=== PATIENT | male | born 1965 | race Caucasian/White ===

== ENCOUNTER 2016-04-21 15:46 | Emergency (ER) | payer OTHER, BC ==
--- NOTE | 2016-04-21 17:50 | ERNOTE ---
Upper Extremity HPI - Narrative Date of Service: 04/21/16 - General Extremities Pain Location: arm: left, forearm: left Time Seen by Provider: 04/21/16 16:13 Source: patient Exam Limitations: no limitations - Immun/Allergies/Home Medications Immunizations: IMMUNIZATION HX Immunizations Up to Date Yes History of Influenza Vaccine Yes Allergies/Adverse Reactions: Allergies Allergy/AdvReac Type Severity Reaction Status Date / Time No Known Allergies Allergy Unverified 04/21/16 15:59 Home Medications: HOME MEDICATIONS Chlorthalidone 50 mg PO DAILY 04/21/16 [Last Taken Unknown] Citalopram Hydrobromide [Citalopram HBr] 40 mg PO DAILY 04/21/16 [Last Taken Unknown] Lisinopril [Zestril] 10 mg PO DAILY 04/21/16 [Last Taken Unknown] Metoprolol Succinate [Toprol Xl] 50 mg PO DAILY 04/21/16 [Last Taken Unknown] Potassium Chloride [Klor-Con 10] 10 meq PO DAILY 04/21/16 [Last Taken Unknown] - History of Present Illness Narrative: Pt. comes in with L distal humerus and proximal ulna pain that started at 1500 this afternoon. Pt. denies any prehospital treatment or alleviating factors but states that extension of the elbow, abduction of the shoulder and rotation of the arm exacerbate the pain. Review of Systems - Review of Systems Constitutional: Present: no symptoms reported. Absent: recent illness, fever, chills, weakness, fatigue, malaise EYE: Present: no symptoms reported ENT: Present: no symptoms reported Respiratory: Present: no symptoms reported. Absent: shortness of breath, cough , wheezing Cardiology: Present: no symptoms reported. Absent: chest pain, palpitations Gastrointestinal/Abdominal: Present: no symptoms reported. Absent: nausea, vomiting, diarrhea, abdominal pain Musculoskeletal: Present: muscle pain - distal bicep attachment and proximal flexor digitalis attachment. Absent: back pain Neurological: Present: no symptoms reported. Absent: headache, dizziness/light- headedness, numbness, tingling, tremors All Other Systems: All systems neg except as marked - Patient's Past Medical History Patient History - Medical: No pertinent hx Patient History - Cardiac/Respiratory: Hypertension Patient History - Cancer: No Hx of Cancer Patient History - Surgical Procedures: Other - Social History Smoking Status: Never smoker Have you smoked in the past 12 months: No - Immunizations Immunizations Up to Date: Yes History of Influenza Vaccine: Yes Physical Exam - Physical Exam General Appearance: Present: wd/wn, alert, no apparent distress Eye Exam: Normal inspection: bilateral, PERRL: bilateral, EOMI: bilateral Ears, Nose, Throat: Present: normal ENT inspection, hearing grossly normal, normal pharynx Neck: Present: normal inspection, nontender. Absent: lymphadenopathy (R), lymphadenopathy (L) Respiratory: Present: no respiratory distress, normal breath sounds, no accessory muscle use, chest nontender, lungs clear Cardiovascular/Chest: Present: regular rate, rhythm, no murmur, normal peripheral pulses Back Exam: Present: normal inspection, normal range of motion, no vertebral tenderness Extremity Exam: Present: other - distal bicep attachment and proximal flexor digitalis attachment tenderness and pain with extension resistance Neurological Exam: Present: alert, oriented, normal mood/affect, no motor/ sensory deficits Skin Exam: Present: normal color, warm/dry. Absent: pallor, skin rash ED Progress - Vital Signs Patient's Vital Signs:: I have reviewed the patient's vital signs. Vital Signs: Vital Signs 04/21/16 04/21/16 15:56 17:30 Temperature 36.4 C L Pulse Rate 59 L 80 Respiratory 16 12 Rate Blood Pressure 161/93 136/88 O2 Sat by Pulse 95 99 Oximetry - X-Ray X-Ray #1 X-Ray: elbow Interpretation: Reviewed by me X-ray Comments: no acute - Progress/Reassessment Chief Complaint: Upper Extremity Injury/Problem Departure Clinical Impression: ECRL (extensor carpi radialis longus) tenosynovitis Biceps muscle strain Qualifiers: Encounter type: initial encounter Laterality: left Qualified Code(s): S46.112A - Strain of muscle, fascia and tendon of long head of biceps, left arm, initial encounter - Departure Disposition: Home self-care Condition: Good Instructions: Tendinitis and Tenosynovitis-SportsMed Additional Instructions: Please folow up with occupational health to determine next steps you may take up to 800mg Ibuprofen as needed every 8 hours for pain Referrals: Del Cain MD [Primary Care Provider] -
[2016-04-21 18:14] VITALS: BP 141/88
== END 2016-04-21 18:14 | disposition home or self-care (01) ==
LOC: ER 15:46
DX: M65.88 Other synovitis and tenosynovitis, other site (principal); S46.112A Strain of muscle, fascia and tendon of long head of biceps, left arm, initial encounter; X58.XXXA Exposure to other specified factors, initial encounter

== ENCOUNTER 2017-06-07 06:54 | Day surgery (SDC) | payer BC, OTHER ==
[~2017-06-07 06:54] MED LIST: RINGER'S SOLUTION,LACTATED 1,000 ML IV PRN
[2017-06-07] MEDS ORDERED: RINGER'S SOLUTION,LACTATED 1,000 ML IV ONE (07:25)
[2017-06-07] MEDS ORDERED: RINGER'S SOLUTION,LACTATED 1,000 ML IV PRN (08:45)
[2017-06-07 09:46] VITALS: BP 127/68
--- NOTE | 2017-06-07 15:33 | OR ---
Operative Report - Dictated Report Narrative: OPERATIVE REPORT DATE OF OPERATION: 06/07/2017 PREOPERATIVE DIAGNOSIS: No prior dedicated colon studies POSTOPERATIVE DIAGNOSIS: Normal colonoscopy OPERATION: Colonoscopy SURGEON: Joanne Shaikh MD ANESTHESIA: BROOKLYN Mayers CRNA INDICATIONS FOR PROCEDURE: The patient is a 52-year-old male referred by Dr Cain for initial colon screening. He has had no previous dedicated colon studies. There is no specific family history of colon cancer. The patient is currently asymptomatic FINDINGS: Somewhat capacious colon otherwise normal exam to the cecum NARRATIVE OF PROCEDURE: The patient was identified in the holding area, and prior to the administration of anesthetic, a multidisciplinary timeout was observed. With the patient in the left lateral position and after the administration of intravenous sedation, the perineum was inspected. There was no evidence of pilonidal disease or skin breakdown. The external appearance of the anus was normal. Sphincter tone was good. The flexible fiberoptic colonoscope was inserted into the rectum which was insufflated with air. The rectal mucosa and submucosal vascular pattern appeared normal, the prep was seen to be complete. The scope was advanced through the sigmoid colon, up the descending colon, and around the splenic flexure where the triangular haustral architecture of the transverse colon was seen. The scope was advanced across the transverse colon, around the hepatic flexure to the cecum, where the confluence of tenia and the ileocecal valve were identified. The mucosa at this level appeared normal. The scope was then slowly withdrawn in a circular fashion so that all aspects of colonic mucosa were inspected. The colon was capacious and character however relatively normal in course. The haustral architecture appeared well preserved throughout with no evidence of external compression. The mucosa and submucosal vascular pattern appeared normal, specifically there was no gross evidence to suggest colitis or inflammatory bowel disease and no AV malformations were seen. No rafal diverticulosis was demonstrated. No polyps were encountered. The scope was gradually withdrawn to the level of the rectum. As much insufflated air as possible was removed. The scope was withdrawn from the patient and the procedure terminated. The patient tolerated the anesthetic and procedure well without complication and was transferred back to the ambulatory surgery area awake and in stable condition. The patient remained stable throughout a period of postoperative observation. He denied abdominal discomfort, was able to tolerate by mouth intake, and was up without assistance. I shared the operative findings with the patient and he was given copies of the photographs which appear in the medical record. He was discharged home with instructions not to engage in hazardous activity today, but may resume normal activity tomorrow, and advance diet as tolerated. He is to continue those medications as listed in the history and physical exam. RECOMMENDATION: Colon surveillance in 10 years depending upon findings or symptoms Reviewed and electronically signed
== END 2017-06-07 06:55 | disposition home or self-care (01) ==
LOC: AMB 06:54
PROVIDERS: ATTEND Surgery
PROC: 0DJD8ZZ Inspection of Lower Intestinal Tract, Via Natural or Artificial Opening Endoscopic (ICD-10-PCS; principal; 2017-06-07)
DX: Z12.11 Encounter for screening for malignant neoplasm of colon; Z68.33 Body mass index [BMI] 33.0-33.9, adult; K21.9 Gastro-esophageal reflux disease without esophagitis; E78.5 Hyperlipidemia, unspecified; F41.1 Generalized anxiety disorder; I10 Essential (primary) hypertension